=== PATIENT | male | born 1985 | race Caucasian/White ===

== ENCOUNTER 2019-05-26 16:52 | Emergency (ER) | payer MEDICAID ==
[~2019-05-26] VITALS: Ht 188 cm; Wt 81.2 kg
--- NOTE | 2019-05-26 16:56 | NUR ---
patient [id number], homeless, overdosed on unknown medications. On room air, breathing evenly and unlabored. connected to the monitor and pulse ox. will continue to monitor accordingly.
[2019-05-26 17:29] LABS: BASOPHILS # (AUTO) 0.2 /CMM (0.0-0.2); EOSINOPHILS % (AUTO) 0.8 % (0.0-6.0); HEMATOCRIT 45 % (39-51); HEMOGLOBIN 15.1 g/dL (13.5-17.5); LYMPHOCYTES % (AUTO) 51.9 % (20.0-44.0); MEAN CORPUSCULAR HGB CONC 34 g/dl (31.0-36.0); MEAN CORPUSCULAR VOLUME 101 fL (80-96); MONOCYTES # (AUTO) 0.4 /CMM (0.1-1.30); MONOCYTES % (AUTO) 9.6 % (2.0-12.0); NEUTROPHILS # (AUTO) 1.3 /CMM (1.8-8.9); NEUTROPHILS % (AUTO) 33.7 % (43.0-81.0); PLATELET COUNT (AUTO) 173 /CMM (150-450); RED BLOOD CELL COUNT(AUTO) 4.43 MIL/uL (4.5-6.0); WHITE BLOOD COUNT (AUTO) 3.9 K/uL (4.3-11.0)
[2019-05-26] MEDS ORDERED: IV NS 0.9% 1,000 ML BAG IV ONE (17:30)
[2019-05-26 17:51] LABS: CALCIUM, SERUM 7.8 mg/dL (8.5-10.1); CREATININE 0.8 mg/dL (0.6-1.3); POTASSIUM 3.9 mmol/L (3.5-5.1)
[2019-05-26 17:58] LABS: BILIRUBIN,DIRECT 0.1 mg/dL (0.0-0.2); BILIRUBIN,TOTAL 0.2 mg/dL (0.2-1.0); SALICYLATE 6.2 mg/dL (2.8-20.0); TOTAL PROTEIN, SERUM 7.3 g/dL (6.4-8.2)
--- NOTE | 2019-05-26 19:32 | NUR ---
ASSESSED PT ON BED, AAOX4, NOT IN RESPIRATORY DISTRESS, V/S STABLE, KEPT RESTED AND COMFORTABLE, WILL CONTINUE TO MONITOR.
[2019-05-26 20:54] VITALS: BP 119/68
--- NOTE | 2019-05-26 20:54 | NUR ---
IV removed. Catheter intact and site benign. Pressure and 4x4 applied to site. No bleeding noted. Patient discharged to home in stable condition. Written and verbal after care instructions given. Patient verbalizes understanding of instruction.
== END 2019-05-26 20:55 | disposition home or self-care (01) ==
LOC: ER 16:53
DX: F10.129 Alcohol abuse with intoxication, unspecified (principal); G93.41 Metabolic encephalopathy; F17.200 Nicotine dependence, unspecified, uncomplicated; R94.31 Abnormal electrocardiogram [ECG] [EKG]; Y90.8 Blood alcohol level of 240 mg/100 ml or more
CPT/HCPCS: 36415; 80048; 80076; 80307; 80329; 85025; 93005; 99284; G0480; J7030

== ENCOUNTER 2019-07-08 00:56 | Emergency (ER) | payer MEDICAID ==
[~2019-07-08] VITALS: Ht 182.9 cm; Wt 72.6 kg
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
[2019-07-08] MEDS ORDERED: SODIUM BICARBONATE 5 ML VIAL ONE (01:29)
[2019-07-08] MEDS ORDERED: PENICILLIN G BENZATHINE 2.4 MMU/4 ML ML IM ONE ×2 (01:30)
[2019-07-08] MEDS ORDERED: LIDOCAINE 1%-EPI 1:100,000 20 ML VIAL ONE (01:30)
[2019-07-08] MEDS ORDERED: SODIUM BICARBONATE 5 ML VIAL MC ONE (01:30)
[2019-07-08] MEDS ORDERED: TDAP [DIPH/PERTUSSIS/TET] 0.5 ML VIAL IM ONE ×2 (01:30→01:31)
[2019-07-08] MEDS ORDERED: LIDOCAINE 1%-EPI 1:100,000 20 ML VIAL TP ONE (01:30)
--- NOTE | 2019-07-08 01:55 | NUR ---
AT BEDSIDE FOR WOUND CLEANING
[2019-07-08] MEDS ORDERED: ONDANSETRON 4 MG TAB.RAPDIS ONE (02:47)
[2019-07-08] MEDS ORDERED: HYDROCODONE/APAP 10/325MG 1 EA TABLET ONE (02:47)
[2019-07-08] MEDS ORDERED: HYDROCODONE/APAP 10/325MG 1 EA TABLET PO ONE (03:00)
[2019-07-08] MEDS ORDERED: ONDANSETRON 4 MG TAB.RAPDIS SL ONE (03:00)
--- NOTE | 2019-07-08 03:08 | NUR ---
Patient is resting comfortably in bed. Easily aroused. VSS.
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
[2019-07-08] MEDS ORDERED: oxyCODONE/APAP (5/325 MG) 1 UDTAB TABLET ONE (03:54)
[2019-07-08] MEDS ORDERED: oxyCODONE/APAP (5/325 MG) 1 UDTAB TABLET PO ONE (04:00)
--- NOTE | 2019-07-08 04:02 | NUR ---
Patient discharged to home in stable condition. Written and verbal after care instructions given. Patient AND HIS MOTHER verbalizes understanding of instruction AND RX. PT'S VSS. PT LEFT VIA WC TO THE CAR. PT WAS ABLE TO AMBULATE WITHOUT ASSISTANCE. PT'S RT EYE IS SWOLLEN SHUT. PT'S MOTHER IS DRIVING THE PT HOME.
[2019-07-08 04:06] VITALS: BP 126/72
== END 2019-07-08 03:55 | disposition home or self-care (01) ==
LOC: ER 00:56
DX: S02.831A Fracture of medial orbital wall, right side, initial encounter for closed fracture (principal); S01.511A Laceration without foreign body of lip, initial encounter; S01.81XA Laceration without foreign body of other part of head, initial encounter; R51 Headache; F10.10 Alcohol abuse, uncomplicated; F17.200 Nicotine dependence, unspecified, uncomplicated; F12.10 Cannabis abuse, uncomplicated; Y90.9 Presence of alcohol in blood, level not specified; Z98.890 Other specified postprocedural states; Y08.89XA Assault by other specified means, initial encounter; Y93.89 Activity, other specified; Y92.89 Other specified places as the place of occurrence of the external cause; Y99.8 Other external cause status
CPT/HCPCS: 12014; 70450; 70480; 90471; 90715; 96372; 99284; 99406; A6403; J0558; J3490 ×2; Q0162

== ENCOUNTER 2019-07-09 14:35 | Emergency (ER) | payer MEDICAID ==
[~2019-07-09] VITALS: Ht 182.9 cm; Wt 72.6 kg
[2019-07-09 14:45] VITALS: BP 133/80
[2019-07-09] MEDS ORDERED: CLINDAMYCIN 900 MG/6 ML VIAL ONE (15:46)
[2019-07-09] MEDS: CLINDAMYCIN 900 MG/6 ML VIAL IM ONE (15:55)
== END 2019-07-09 15:56 | disposition home or self-care (01) ==
LOC: ER 14:36
DX: S02.85XD Fracture of orbit, unspecified, subsequent encounter for fracture with routine healing (principal); S01.511D Laceration without foreign body of lip, subsequent encounter; L08.9 Local infection of the skin and subcutaneous tissue, unspecified; K13.0 Diseases of lips; H11.31 Conjunctival hemorrhage, right eye; F17.200 Nicotine dependence, unspecified, uncomplicated; Z98.890 Other specified postprocedural states; Z60.2 Problems related to living alone; Y08.89XD Assault by other specified means, subsequent encounter
CPT/HCPCS: 96372; 99283; J3490

== ENCOUNTER 2019-07-11 15:19 | Emergency (ER) | payer MEDICAID ==
[~2019-07-11] VITALS: Ht 185.4 cm; Wt 72.6 kg
[2019-07-11 15:49] VITALS: BP 132/74
== END 2019-07-11 18:42 | disposition home or self-care (01) ==
LOC: ER 15:35
DX: S01.511D Laceration without foreign body of lip, subsequent encounter (principal); F17.200 Nicotine dependence, unspecified, uncomplicated; Z98.890 Other specified postprocedural states; Z60.2 Problems related to living alone; Y00.XXXD Assault by blunt object, subsequent encounter

== ENCOUNTER 2021-12-16 16:50 | Emergency (ER) | payer MEDICAID, OTHER ==
[~2021-12-16] VITALS: Ht 182.9 cm; Wt 72.6 kg
[2021-12-16 16:51] VITALS: BP 129/74
--- NOTE | 2021-12-16 16:52 | NUR ---
PT BIB MOM C/O SI NO SPECIFIC PLAN REQUESTING VOLUNTARY PSYCH ADMISSION TO [facility]. PT IS AAOX4, NOT IN RESPIRATORY DISTRESS, V/S STABLE, KEPT RESTED AND COMFORTABLE. WILL CONTINUE TO MONITOR.
--- NOTE | 2021-12-16 17:00 | NUR ---
PT INSISTED TO STAY WITH HIS MOM IN THE WR. WILLIAM MCGRATH AWARE.
--- NOTE | 2021-12-16 17:18 | NUR ---
ER PHLEB AT BEDSIDE FOR BLOOD DRAW.
[2021-12-16 17:35] LABS: BASOPHILS % (AUTO) 0.3 % (0.0-2.0); EOSINOPHILS % (AUTO) 1.3 % (0.0-6.0); HEMATOCRIT 44 % (39-51); HEMOGLOBIN 14.8 g/dL (13.5-17.5); LYMPHOCYTES # (AUTO) 1.9 K/uL (0.8-4.8); LYMPHOCYTES % (AUTO) 39.2 % (20.0-44.0); MEAN CORPUSCULAR HGB CONC 33 g/dl (31.0-36.0); MEAN CORPUSCULAR VOLUME 98 fL (80-96); MONOCYTES # (AUTO) 0.2 K/uL (0.1-1.30); MONOCYTES % (AUTO) 4.8 % (2.0-12.0); NEUTROPHILS # (AUTO) 2.6 K/uL (1.8-8.9); NEUTROPHILS % (AUTO) 54.4 % (43.0-81.0); PLATELET COUNT (AUTO) 229 K/uL (150-450); RED BLOOD CELL COUNT(AUTO) 4.52 MIL/uL (4.5-6.0); WHITE BLOOD COUNT (AUTO) 4.8 K/uL (4.3-11.0)
[2021-12-16 17:54] LABS: ALANINE AMINOTRANSFERASE 41 U/L (12-78); ALBUMIN 3.7 g/dL (3.4-5.0); ALCOHOL, BLOOD 269 mg/dL (0-0); ALKALINE PHOSPHATASE 94 U/L (46-116); ASPARTATE AMINOTRANSFERASE 20 U/L (15-37); BILIRUBIN,DIRECT 0.1 mg/dL (0.0-0.2); BILIRUBIN,TOTAL 0.3 mg/dL (0.2-1.0); CARBON DIOXIDE 24 mmol/L (21-32); CHLORIDE 100 mmol/L (98-107); CREATININE 0.9 mg/dL (0.6-1.3); GLUCOSE 297 mg/dL (74-106); POTASSIUM 3.6 mmol/L (3.5-5.1); SODIUM SERUM 138 mmol/L (136-145); TOTAL PROTEIN, SERUM 7.4 g/dL (6.4-8.2); UREA NITROGEN, BLOOD 13 mg/dL (7-18)
[2021-12-16 18:07] LABS: ACETAMINOPHEN < 0 ug/ml (10-30)
--- NOTE | 2021-12-16 18:54 | NUR ---
Patient does not wish to proceed with medical care recommended by Cassie MCGRATH. Patient given information related to possible complications, up to and including , which could occur as a result of leaving the hospital at this time. Patient verbalizes understanding of risks involved due to leaving against medical advice. Patient refused to sign ama paper.
[2021-12-16] MEDS ORDERED: IV NS 0.9% 1,000 ML BAG IV ONE (19:00)
== END 2021-12-16 18:56 | disposition left against medical advice (07) ==
LOC: ER 16:56
DX: R45.851 Suicidal ideations (principal); D75.89 Other specified diseases of blood and blood-forming organs; L55.0 Sunburn of first degree; F10.129 Alcohol abuse with intoxication, unspecified; Y90.8 Blood alcohol level of 240 mg/100 ml or more; E86.0 Dehydration; E11.65 Type 2 diabetes mellitus with hyperglycemia; F17.290 Nicotine dependence, other tobacco product, uncomplicated; Z53.29 Procedure and treatment not carried out because of patient's decision for other reasons
CPT/HCPCS: 36415; 80048; 80076; 80143; 80320; 85025; 87426; 99285; 99406; C9803; G0480

== ENCOUNTER 2022-11-28 01:29 | Inpatient (IN) | payer MEDICAID, OTHER ==
[~2022-11-28] VITALS: Ht 182.9 cm; Wt 81.6 kg
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
[2022-11-28] MEDS ORDERED: LEVETIRACETAM (500MG) 500 MG/5 ML VIAL IV ONE (05:42)
[2022-11-28] MEDS ORDERED: TDAP [DIPH/PERTUSSIS/TET] 0.5 ML VIAL IM ONE ×2 (05:43→06:00)
[2022-11-28] MEDS ORDERED: LEVETIRACETAM (500MG) 1,000 MG in IV NS 0.9% 100 ML IV SCH (06:00)
[2022-11-28 06:31] LABS: BASOPHILS % (AUTO) 0.5 % (0.0-2.0); EOSINOPHILS % (AUTO) 1.3 % (0.0-6.0); HEMATOCRIT 45 % (39-51); HEMOGLOBIN 14.7 g/dL (13.5-17.5); LYMPHOCYTES % (AUTO) 34.3 % (20.0-44.0); MEAN CORPUSCULAR HGB CONC 33 g/dl (31.0-36.0); MEAN CORPUSCULAR VOLUME 93 fL (80-96); MONOCYTES # (AUTO) 0.2 K/uL (0.1-1.30); MONOCYTES % (AUTO) 4.1 % (2.0-12.0); NEUTROPHILS # (AUTO) 3.5 K/uL (1.8-8.9); NEUTROPHILS % (AUTO) 59.8 % (43.0-81.0); PLATELET COUNT (AUTO) 166 K/uL (150-450); RED BLOOD CELL COUNT(AUTO) 4.79 MIL/uL (4.5-6.0); WHITE BLOOD COUNT (AUTO) 5.9 K/uL (4.3-11.0)
[2022-11-28 06:55] LABS: ALBUMIN 3.8 g/dL (3.4-5.0); BILIRUBIN,TOTAL 0.3 mg/dL (0.2-1.0); CALCIUM, SERUM 8.6 mg/dL (8.5-10.1); CREATININE 0.7 mg/dL (0.6-1.3); POTASSIUM 5.4 mmol/L (3.5-5.1); TOTAL PROTEIN, SERUM 7.4 g/dL (6.4-8.2)
[2022-11-28] MEDS ORDERED: IV NS 0.9% 1,000 ML IV ONE ×2 (10:00)
--- NOTE | 2022-11-28 10:10 | NUR ---
EPIC PAGED, AWAITING HOSPITALIST CALL BACK.
--- NOTE | 2022-11-28 10:36 | NUR ---
GOT BED 116-1 ADMITTING INFORMED.
--- NOTE | 2022-11-28 11:13 | NUR ---
room 255
--- NOTE | 2022-11-28 11:30 | NUR ---
Report given to SHIRA Nieves
[2022-11-28] MEDS ORDERED: Z GUARD REMEDY 4 OZ OINT TP PRN (12:00)
[2022-11-28] MEDS ORDERED: MAG HYDROX/AL HYDROX/SIMETH 30 ML UDC PO PRN (12:00)
[2022-11-28] MEDS ORDERED: ZOLPIDEM TARTRATE 5 MG TABLET PO PRN (12:00)
[2022-11-28] MEDS ORDERED: ONDANSETRON HCL/PF 4 MG/2 ML VIAL IVP PRN (12:00)
[2022-11-28] MEDS ORDERED: HYDROCODONE/APAP 5/325MG TABLET PO PRN (12:00)
[2022-11-28] MEDS ORDERED: ACETAMINOPHEN 325 MG TABLET PO PRN ×2 (12:00→12:30)
[2022-11-28] MEDS ORDERED: MAGNESIUM HYDROXIDE 30 ML UDC PO PRN (12:00)
[2022-11-28] MEDS ORDERED: ACETAMINOPHEN ES 500 MG TABLET ONE (12:04)
[2022-11-28] MEDS ORDERED: ACETAMINOPHEN ES 500 MG TABLET PO PRN (12:30)
--- NOTE | 2022-11-28 12:33 | NUR ---
TRANSPORTED TO ICU, CONDITION: GUARDED.
[2022-11-28 12:45] VITALS: BP 107/68
--- NOTE | 2022-11-28 12:45 | NUR ---
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
[2022-11-28 13:00] VITALS: BP 111/74
[2022-11-28] MEDS ORDERED: LEVETIRACETAM (500MG) 500 MG in IV NS 0.9% 100 ML IV SCH (13:00)
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
== END 2022-11-28 18:12 | disposition left against medical advice (07) | DRG 55 ==
LOC: ER 01:31 → ICU 11:16
PROVIDERS: ADMIT Student in an Organized Health Care Education/Training Program; ATTEND Student in an Organized Health Care Education/Training Program
DX: S06.6XAA Traumatic subarachnoid hemorrhage with loss of consciousness status unknown, initial encounter (principal); S06.5XAA Traumatic subdural hemorrhage with loss of consciousness status unknown, initial encounter; E87.5 Hyperkalemia; S02.91XA Unspecified fracture of skull, initial encounter for closed fracture; W18.39XA Other fall on same level, initial encounter; Y92.009 Unspecified place in unspecified non-institutional (private) residence as the place of occurrence of the external cause; F10.120 Alcohol abuse with intoxication, uncomplicated; Z20.822 Contact with and (suspected) exposure to COVID-19
CPT/HCPCS: 36415; 70450-TC; 80048-TC; 80076-TC; 85025-TC; 85730-TC; 90715; C9803; G0378; J1953; J7030

== ENCOUNTER 2023-02-26 10:13 | Emergency (ER) | payer MEDICAID, OTHER ==
[~2023-02-26] VITALS: Ht 182.9 cm; Wt 77.1 kg
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
--- NOTE | 2023-02-26 10:21 | NUR ---
CALLED SECURITY FOR WANDING. SI PREC. INITIATED
--- NOTE | 2023-02-26 10:45 | NUR ---
lab at bed side
[2023-02-26 10:57] LABS: BASOPHILS # (AUTO) 0.1 K/uL (0.0-0.2); BASOPHILS % (AUTO) 1.4 % (0.0-2.0); EOSINOPHILS % (AUTO) 0.1 % (0.0-6.0); HEMATOCRIT 39 % (39-51); HEMOGLOBIN 13.3 g/dL (13.5-17.5); LYMPHOCYTES # (AUTO) 1.5 K/uL (0.8-4.8); LYMPHOCYTES % (AUTO) 20.6 % (20.0-44.0); MEAN CORPUSCULAR HGB CONC 34 g/dl (31.0-36.0); MEAN CORPUSCULAR VOLUME 95 fL (80-96); MONOCYTES # (AUTO) 0.2 K/uL (0.1-1.30); MONOCYTES % (AUTO) 3.2 % (2.0-12.0); NEUTROPHILS # (AUTO) 5.3 K/uL (1.8-8.9); NEUTROPHILS % (AUTO) 74.7 % (43.0-81.0); PLATELET COUNT (AUTO) 131 K/uL (150-450); RED BLOOD CELL COUNT(AUTO) 4.13 MIL/uL (4.5-6.0); WHITE BLOOD COUNT (AUTO) 7.1 K/uL (4.3-11.0)
[2023-02-26 11:15] LABS: ALANINE AMINOTRANSFERASE 27 U/L (12-78); ALBUMIN 3.9 g/dL (3.4-5.0); ALCOHOL, BLOOD 242 mg/dL (0-10); ALKALINE PHOSPHATASE 98 U/L (46-116); ASPARTATE AMINOTRANSFERASE 41 U/L (15-37); BILIRUBIN,DIRECT 0.2 mg/dL (0.0-0.2); BILIRUBIN,TOTAL 0.7 mg/dL (0.2-1.0); CALCIUM, SERUM 8.4 mg/dL (8.5-10.1); CARBON DIOXIDE 21 mmol/L (21-32); CHLORIDE 99 mmol/L (98-107); CREATININE 0.7 mg/dL (0.6-1.3); GLUCOSE 61 mg/dL (74-106); POTASSIUM 3.8 mmol/L (3.5-5.1); SODIUM SERUM 140 mmol/L (136-145); TOTAL PROTEIN, SERUM 6.9 g/dL (6.4-8.2); UREA NITROGEN, BLOOD 18 mg/dL (7-18)
[2023-02-26 15:50] LABS: BILIRUBIN,URINE 1+ (NEGATIVE); COLOR,URINE YELLOW (YELLOW); LEUKOCYTE ESTERASE ,URINE NEGATIVE (NEGATIVE); NITRITE, URINE NEGATIVE (NEGATIVE); PROTEIN,URINE 2+ mg/dl (NEGATIVE); UGLUCOSE NEGATIVE (NEGATIVE); UROBILINOGEN,URINE 0.2 EU/dL (0.2)
[2023-02-26 16:31] LABS: BACTERIA,URINE RARE /HPF (None Seen)
--- NOTE | 2023-02-26 18:39 | NUR ---
FAXED PT CLINICALS TO [facility]
--- NOTE | 2023-02-26 18:51 | NUR ---
pt was witnessed to have a seizure for about 1 minute. pt became very diaphoretic. BP post seizure 139/70 HR 91 and sat 94% on 8L simple mask
--- NOTE | 2023-02-26 18:55 | NUR ---
MD informed about seizure, new orders given. will continue to monitor
[2023-02-26] MEDS ORDERED: IV NS 0.9% 1,000 ML BAG IV ONE (19:00)
[2023-02-26] MEDS ORDERED: LORAZEPAM INJ 2 MG/ML VIAL IV ONE (19:00)
[2023-02-26] MEDS ORDERED: LORAZEPAM INJ 2 MG/ML VIAL ONE (19:04)
--- NOTE | 2023-02-26 19:17 | NUR ---
IV ESTABLISHED R HAND 20G. SALINE LOCK PLACED.
--- NOTE | 2023-02-26 21:51 | NUR ---
FAXED CLINICALS TO [facility]
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
--- NOTE | 2023-02-27 12:42 | NUR ---
CALLED [facility] AND CONFIMED MEDICATIONS AND PROPERTY OF PT WILL BE KEPT SAFE UNTIL HIS RETURN.
[2023-02-27 13:15] VITALS: BP 118/80; TEMP 98.1; O2SAT 96
== END 2023-02-27 13:15 ==
LOC: ER 10:16
DX: R45.851 Suicidal ideations (principal); F10.10 Alcohol abuse, uncomplicated; E11.9 Type 2 diabetes mellitus without complications; F17.200 Nicotine dependence, unspecified, uncomplicated; Z20.822 Contact with and (suspected) exposure to COVID-19; Y90.8 Blood alcohol level of 240 mg/100 ml or more
CPT/HCPCS: 99285; 96374; 96361; 85025; 80048; 80076; 81001; 36415 ×2; 87426; 80143; 80320 ×2; 80307; J2060; J7030; C9803; G0480